=== PATIENT | male | born 1990 | race Caucasian/White ===

== ENCOUNTER 2021-10-10 02:10 | Emergency (ER) | payer BC ==
[~2021-10-10] VITALS: Ht 167.6 cm; Wt 63.0 kg
[2021-10-10 06:00] VITALS: BP 127/92
== END 2021-10-10 06:04 | disposition home or self-care (01) ==
LOC: ER 02:10
DX: R41.82 Altered mental status, unspecified (principal)

== ENCOUNTER 2022-01-22 09:00 | Emergency (ER) | payer BC ==
[~2022-01-22] VITALS: Ht 167.6 cm; Wt 66.0 kg
[2022-01-22 10:18] LABS: Urine Bacteria NONE SEEN /hpf (None Seen); Urine Blood Negative /uL (Negative); Urine Hyaline Cast FEW /lpf (0 - 2); Urine Mucus FEW (None Seen); Urine WBC 1 /hpf (0 - 3)
[2022-01-22 10:46] VITALS: BP 140/100
[2022-01-22] MEDS ORDERED: DOXY-338 PO (12:35)
[2022-01-22] MEDS ORDERED: NAPR500T31 PO (12:35)
== END 2022-01-22 12:44 | disposition home or self-care (01) ==
LOC: ER 09:05
DX: N43.3 Hydrocele, unspecified (principal); N45.1 Epididymitis
CPT/HCPCS: 76870; 81001